=== PATIENT | male | born 2000 | race Caucasian/White ===

== ENCOUNTER 2018-08-04 14:01 | Emergency (ER) | payer SELFPAY ==
[~2018-08-04] VITALS: Ht 170.2 cm; Wt 54.0 kg
[2018-08-04 14:16] VITALS: BP 125/72; PULSE 74; RESP 18; Ht 170.2 cm; Wt 54.0 kg
[2018-08-04] MEDS ORDERED: ACET500C5 PO (17:47)
[2018-08-04] MEDS ORDERED: CYCL10TA7 PO (17:47)
--- NOTE | 2018-08-04 20:40 | ERD ---
ER Documentation Chief Complaint Chief Complaint pt bib self with c/o head pain s/p getting hit while playing basketball HPI 18-year-old male patient with no significant past medical history presents to the ED stating that he was playing basketball yesterday, actually got hit by the basketball of the left side of his posterior head and neck. Denies any loss of consciousness. Reports that he has been applying ice and taking Tylenol. Denies any nausea, vomiting, headache, fever, chills, neck stiffness, chest pain, shortness of breath, abdominal pain. ROS All systems reviewed and are negative except as per history of present illness. Medications Home Meds Active Scripts Cyclobenzaprine Hcl* (Cyclobenzaprine Hcl*) 10 Mg Tablet, 10 MG PO TID, #15 TAB Prov:DIANE LEWIS PA-C 08/04/18 Acetaminophen* (Tylophen*) 500 Mg Capsule, 1 CAP PO Q6H PRN for PAIN AND OR ELEVATED TEMP, #20 CAP Prov:DIANE LEWIS PA-C 08/04/18 Allergies Allergies: Coded Allergies: No Known Allergy (Unverified , 08/04/18) PMhx/Soc Medical and Surgical Hx: pt denies Medical Hx, pt denies Surgical Hx Hx Alcohol Use: No Hx Substance Use: No Hx Tobacco Use: No Smoking Status: Never smoker FmHx Family History: No diabetes, No coronary disease Physical Exam Vitals Vital Signs Date Temp Pulse Resp B/P (MAP) Pulse Ox O2 O2 Flow FiO2 Time Delivery Rate 08/04/18 98.3 74 18 125/72 98 14:16 (89) Physical Exam Const: Mce-mfm-qnesanyoc, well-nourished. In no acute distress. Head: Atraumatic, normocephalic. No hematoma. No law sign. Eyes: Normal Conjunctiva without injection. No purulent discharge. PERRLA. EOMI ENT: Normal external ear. Ear canal without erythema. Tympanic membrane pearly al without effusion or bulging. No hemotympanum. Nasal canal clear with normal turbinates. Moist oropharynx without tonsillar exudates. Non-erythematous pharynx. Uvula midline. No drooling. No trismus. Neck: No cervical midline tenderness. Full range of motion. No meningismus. No cervical lymphadenopathy. No JVD. Resp: Clear to auscultation bilaterally. No wheezing, rhonchi, rales, or crackles. No accessory muscle use. No retractions. Cardio: Regular rate and rhythm. No murmurs, rubs or gallops. Abd: Soft, non tender, non distended. Normal bowel sounds. No palpable masses. No rebound tenderness. No guarding. Negative McBurney's Point. Negative Swenson's Sign. Skin: Normal skin turgor. No petechiae or rashes Back: No midline tenderness. No CVA tenderness. Ext: No cyanosis, or edema. Distal pulses intact bilaterally. Neur: Awake and alert. Normal gait. Normal coordination. Cranial Nerves II- VII intact. Normal finger to nose. Muscle strength 5/5. Sensation intact. Psych: Normal Mood and Affect Procedures/MDM 18-year-old male patient with no significant past medical history presents to ED complaining of a posterior head injury that started after playing basketball. Patient is afebrile and nontoxic-appearing. Patient has full range of motion of the cervical neck as well as no midline tenderness. Tenderness palpation of the left trapezius muscle. Low suspicion for intracranial bleed, subarachnoid hemorrhage, meningitis, TIA, stroke, subdural hematoma, seizures, carotid dissection, compression fracture, epidural hematoma, or other emergent conditions. Diagnosis: Acute head injury, neck muscle strain Discharge medications: Cyclobenzaprine, Tylenol Follow up with primary care physician in 1-2 days. Instructed patient to return to the ED sooner for any worsening symptoms. Patient's questions were answered. Patient is hemodynamically stable. Patient understood and agreed with discharge plan. Patient discharged stable. Disclaimer: Inadvertent spelling and grammatical errors are likely due to EHR/dictation software use and do not reflect on the overall quality of patient care. Also, please note that the electronic time recorded on this note does not necessarily reflect the actual time of the patient encounter. Departure Diagnosis: Primary Impression: Acute head injury Encounter type: initial encounter Qualified Codes: S09.90XA - Unspecified injury of head, initial encounter Additional Impression: Neck muscle strain Encounter type: initial encounter Qualified Codes: S16.1XXA - Strain of muscle, fascia and tendon at neck level, initial encounter Condition: Stable Patient Instructions: HEAD INJURY with Wake-Up (Adult), Neck Sprain/Strain Referrals: [facility] YOU HAVE RECEIVED A MEDICAL SCREENING EXAM AND THE RESULTS INDICATE THAT YOU DO NOT HAVE A CONDITION THAT REQUIRES URGENT TREATMENT IN THE EMERGENCY DEPARTMENT. FURTHER EVALUATION AND TREATMENT OF YOUR CONDITION CAN WAIT UNTIL YOU ARE SEEN IN YOUR DOCTORS OFFICE WITHIN THE NEXT 1-2 DAYS. IT IS YOUR RESPONSIBILITY TO MAKE AN APPOINTMENT FOR FOLOW-UP CARE. IF YOU HAVE A PRIMARY DOCTOR --you should call your primary doctor and schedule an appointment IF YOU DO NOT HAVE A PRIMARY DOCTOR YOU CAN CALL OUR PHYSICIAN REFERRAL HOTLINE AT IF YOU CAN NOT AFFORD TO SEE A PHYSICIAN YOU CAN CHOSE FROM THE FOLLOWING [facility] [address] [facility]. [facility] [address] [facility] [address] [facility] [address] [facility]. [facility] [address] [facility]. [facility] [address] [facility]. [facility] YOU HAVE RECEIVED A MEDICAL SCREENING EXAM AND THE RESULTS INDICATE THAT YOU DO NOT HAVE A CONDITION THAT REQUIRES URGENT TREATMENT IN THE EMERGENCY DEPARTMENT. FURTHER EVALUATION AND TREATMENT OF YOUR CONDITION CAN WAIT UNTIL YOU ARE SEEN IN YOUR DOCTORS OFFICE WITHIN THE NEXT 1-2 DAYS. IT IS YOUR RESPONSIBILITY TO MAKE AN APPOINTMENT FOR FOLOW-UP CARE. IF YOU HAVE A PRIMARY DOCTOR --you should call your primary doctor and schedule and appointment IF YOU DO NOT HAVE A PRIMARY DOCTOR YOU CAN CALL OUR PHYSICIAN REFERRAL HOTLINE AT . IF YOU CAN NOT AFFORD TO SEE A PHYSICIAN YOU CAN CHOSE FROM THE FOLLOWING [facility] INSTITUTIONS[facility] [address] [place] [address] [facility] [address] [place] [address] [facility] [address] [place] [address] [facility] URGENT CARE/SPECIALTIES Additional Instructions: Call your primary care doctor TOMORROW for an appointment during the next 2-3 days.See the doctor sooner or return here if your condition worsens before your appointment time. DIANE LEWIS PA-C Aug 04, 2018 20:40
== END 2018-08-04 17:56 | disposition home or self-care (01) ==
LOC: FTE 14:01
DX: S09.90XA Unspecified injury of head, initial encounter (principal); S16.1XXA Strain of muscle, fascia and tendon at neck level, initial encounter; W21.05XA Struck by basketball, initial encounter; Y92.9 Unspecified place or not applicable
CPT/HCPCS: 99283